=== PATIENT | male | born 1955 | race Caucasian/White ===

== ENCOUNTER → 2021-02-27 | Outpatient (CLI) | payer OTHER ==
[~2021-02-27] VITALS: Ht 172.7 cm; Wt 95.3 kg
[~2021-02-27] MED LIST: ASA81BEC PO; AZATHIOPRINE50 MG PO; B COMPLEX1 EACH PO; DICLOFENAC SODI75 MG PO; FISH OIL 1,0001 EAC9 PO; HUMIRA40 MG/0.1 SUBQ; IBUPROFEN 200200 M1 PO; LOPRESSOR50 MG PO; MELATONIN5 M4 PO; NORCO5 PO; OMEPRAZOLE40 MG PO; OSTERA TABLET1 EAC1 PO; SUPER THERAVIT1 EACH PO; TRAMADOL 50 MG50 MG PO; TYLENOL EXTRA500 MG PO
[2021-02-27 12:34] VITALS: BP 131/63
--- NOTE | 2021-02-27 13:08 | NUR ---
Pain Clinic Assessment: 1. History of Osteoarthritis: Left Upper Extremity Right Upper Extremity Left Upper Extremity Right Lower Extremity History of Rheumatoid Arthritis: Not Applicable 2. Height: 5 ft. 8 in. 172.7 cm. Weight: 210.0 lb. oz. 95.256 kg. Patient's BMI: 31.9 3. Vital Signs: BP: 131/63 Pulse: 60 Resp: 18 Temp: 02 Sat: 98 ECG Mon: 4. Pain Intensity: 8 W/ACTIVITY 5. Fall Risk: Dizziness: N Needs help standing or walking: N Fallen in the last 3 months: N Fall risk comments: 6. Patient on Blood Thinner: None 7. History of Hypertension: Y 8. Opioid Therapy greater than 6 weeks: Y Opiate Contract Signed: 9. Risk Assessment Tool Provided: LOW 10. Functional Assessment Tool: 11. Recreational Drug Use: Never Drug Type: Tobacco Use: Never Smoker Tobacco Type: Amount or Packs/day: How Many Years: Alcohol Use: Yes Frequency: Monthly Quant: 1
--- NOTE | 2021-02-28 08:22 | HPC ---
[facility] [address] [place] [address] PAIN MANAGEMENT CONSULTATION Name: BARAK BENSON Room #: REG ELVIA Chandan.#: [id number] Admission: 02/27/21 Attend Phys: Tejas Pastor DO Discharge: Date of : 53 Report #: [id number] THIS REPORT FOR: cc: DYLAN JORDAN Physician not on staff Tejas Pastor DO ~ DOC #: [id number] cc: Raul Chu MD, MURRAY Viramontes, DATE OF SERVICE: 02/27/2021 CHIEF COMPLAINT: Low back pain, bilateral lower extremity pain and paresthesias. 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 The patient has been dealing with on and off pain for years, undergoing surgery to address L5-S1 level in 2019. He did well from a surgical standpoint, but did not see much in the way of improvement in symptoms. He sought further evaluation to neurosurgery of [facility] seeing Dr. Raul Chu initially and advised that surgical options would not be recommended. He followed up with neurosurgery again, seeing nurse practitioner Dylan Jordan who advised the patient trialed conservative options for treatment including the possibility of a spinal cord stimulator trial implantation. The patient was subsequently referred to our clinic to discuss that as an option. The patient reports his pain is continuous and periodic. He describes the pain more like a burning, shooting, aching, stabbing and intermittent numbness and tingling. He placed the current pain score 3/10 daily, average anywhere from 3-10/10 worst pain has been is 10+/10. The patient states that activity tends to exacerbate symptoms. Rest, ice and pain medications tend to improve pain. He has been referred to our service to discuss the possibility of undergoing spinal cord stimulator trial implantation. PAST MEDICAL HISTORY: 1. Osteoarthritis. 2. Obstructive sleep apnea. 3. Anderson's esophagus. 4. History of nephrolithiasis. 5. Environmental allergies. 6. Hypertension. 7. Ulcerative colitis. 8. GERD. 9. TMJ. 10. [place] [address] PAIN MANAGEMENT CONSULTATION Name: BARAK BENSON Room #: REG CLSierra Hawley.#: [id number] Admission: 02/27/21 Attend Phys: Tejas Pastor DO Discharge: Date of : 53 Report #: [id number] PAST SURGICAL HISTORY: 1. Open rotator cuff repair on the right x5. 2. Lithotripsy with stent placement. 3. Lumbar surgery to address L5-S1 level. SOCIAL HISTORY: The patient denies tobacco, IV or illicit drug use. Admits to occasional alcohol beverage. 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 He is receiving disability income from the State of [place]. He is not in litigation in regards to pain. He is unaccompanied at today's visit. REVIEW OF SYSTEMS: Positive for fatigue and weakness, wearing corrective eyewear, hearing loss with tinnitus, chronic sinus problems with rhinitis, painful bowel movements, constipation, rectal bleeding, abdominal pain, history of nephrolithiasis and sexual difficulty, numbness and tingling sensations, memory loss with confusion, slow to heal after cuts, and bleeding and bruising tendencies. All other review of systems negative per 12-point review of systems other than those listed in history of present illness. Pain impact score 42/70 moderate interference of daily activities secondary to pain. ALLERGIES: IV CONTRAST AGENT. CURRENT MEDICATIONS: Azathioprine 50 mg b.i.d., melatonin 5 mg 2 tabs p.o. at bedtime, ibuprofen 200 mg 4 tabs 3 times a day, vitamin B complex 1 tab per day, acetaminophen 1 tab per day, omega-3 fish oil 1 tab per day, aspirin 81 mg per day, multivitamin 1 tab per day, Humira 40 mg subcutaneous, metoprolol 50 mg b.i.d., tramadol 50 mg q.6 hours p.r.n. for pain, diclofenac sodium 75 mg b.i.d., [place] 5/325 one tab p.o. q.4 hours p.r.n. pain, omeprazole 40 mg per day. IMAGING: MRI of lumbar spine dated 10/24/2020 shows lumbar spondylosis at multiple levels. There is a grade II anterolisthesis of L5 on S1 due to bilateral pars defects. No significant central canal stenosis. There is severe bilateral neural foraminal narrowing. There is moderate bilateral neural foraminal narrowing at the L5-S1 level. PQRS: The patient has known bilateral shoulder osteoarthritis, bilateral knee osteoarthritis and lumbar osteoarthritis. He is not treated for rheumatoid arthritis. He is not a fall risk, has not had a fall in the last 3 months. He is placing current pain at 8/10 with activity. He is not on blood thinners, but history of hypertension. He is on chronic opioids with a low opiate addiction potential. Pain impact is 4270, moderate to severe interference of daily activities secondary to pain. PHYSICAL EXAMINATION: [facility] [address] [place] [address] PAIN MANAGEMENT CONSULTATION Name: BARAK BENSON Room #: REG [facility]#: [id number] Admission: 02/27/21 Attend Phys: Tejas Pastor, Discharge: Date of : 53 Report #: [id number] VITAL SIGNS: Blood pressure 131/63, pulse 66, respiratory rate 18 and unlabored. The patient is 98% on room air. Height 5 feet 8 inches tall, weight 210 pounds, BMI calculated 31.9. GENERAL: Well-developed, well-nourished, well-hydrated 65-year-old male, appears stated age. He is in no acute distress. Awake, alert and oriented x3. Current pain score is rated up to 8/10. HEENT: Normocephalic, atraumatic. Pupils equal, round and responsive to light. He is wearing a mask in compliance with COVID-19 regulations. Speech is fluent. LUNGS: Clear, no wheeze, rhonchi or rales. CARDIOVASCULAR: Regular. No appreciable gallop, no rub. ABDOMEN: Soft, mildly obese, normoactive bowel sounds. EXTREMITIES: Show no clubbing, no cyanosis and no edema. MUSCULOSKELETAL: Lower extremity strength equal and symmetrical 5/5 intact to light touch from L1 through S2 dermatomes. Seated straight leg raising negative. Supine straight leg raising negative. Fabere's test is negative. Modified Gaenslen's positive for axial low back pain. Ankle clonus negative. Babinski is negative. Lumbar provocation is met with increasing axial back pain without radiation of symptoms. ASSESSMENT: 1. Chronic lumbar radiculopathy. 2. Severe neural foraminal stenosis of lumbar spine. 3. Displacement of lumbar intervertebral disk with radiculopathy. 4. Failed lumbar spine surgery. 5. Chronic intractable pain. PLAN: 1. Based on today's physical exam, history he provides, the descriptor he uses in regards to pain as well as distribution of symptoms. He is suffering from chronic lumbar radiculopathy secondary to bilateral severe neural foraminal stenosis. The patient and I discussed his recent MRI with him as well as the recent evaluations with Dr. Chu and his nurse practitioner Dylan Jordan in regards to surgical options. I am in agreement with the neurosurgery team that a spinal cord stimulator may provide the patient with good benefit. He and I have had a discussion today about the spinal cord stimulator, but for completeness sake, we did discuss the treatment options that we have available to treat lumbar radicular symptoms. The following was discussed with the patient today. We discussed physical therapy, stretching exercises and core strengthening as a treatment approach. We discussed medication management utilizing neuropathic pain medications. We discussed lumbar epidural injections under fluoroscopic guidance, spinal cord stimulator therapy and ultimately surgical decompression to address the findings at the L4-L5 and L5-S1 level. The patient and I did discuss each of the treatment options in their entirety, but we did choose that [address] [address] PAIN MANAGEMENT CONSULTATION Name: BARAK BENSON Room #: REG ELVIA Wilkinson#: [id number] Admission: 02/27/21 Attend Phys: Tejas Pastor DO Discharge: Date of : 53 Report #: [id number] a spinal cord stimulator would be the most appropriate treatment at this point as he has failed lumbar epidurals. He has trialed medications, but is unwilling to continue to escalate those doses of therapy and surgical options at this point according to neurosurgery records is not a possibility. We discussed with the patient the following in regards to spinal cord stimulator. 2. The patient will need to follow up with Psychiatry in regards to evaluation. This is required by Medicare for trial implantation. The patient will complete a psychiatric evaluation as quickly as possible. We will review those findings. If there is no concerning psychopathology, we will then begin scheduling the patient for permanent implant. The patient was given the names and numbers of psychiatrist to contact that can provide this testing rapidly. He will keep us apprised of the date of his evaluation, so that we can look for the paperwork. 3. We plan to see the patient back in followup visit once he has completed the psychiatric evaluation. We will review those findings. If again no psychopathology is noted, we will have the patient return as quickly as possible to begin the scheduling process. 4. We made no changes in the medication management of the patient today. He will continue his current medications as previously prescribed. 5. We wish to thank Dylan Jordan, nurse practitioner with neurosurgery of [facility] and Dr. Raul Chu for the referral of this patient to our clinic. We will keep you apprised of his progress towards trial implantation. Once this is completed, we will keep you apprised of his response to that trial and whether or not a permanent implant would be recommended. Obtained a permanent implant, so that we can provide analgesic benefit. We will keep the patient apprised of our process as we move forward. We are hopeful he will have a psych evaluation done quickly. Tejas Pastor DO JEJ/AMI <ELECTRONICALLY SIGNED> By: Tejas Pastor DO 02/28/21 0822 [id number] Tejas Pastor, DO /nt
== END ==
LOC: PAIN 07:36
PROVIDERS: ATTEND Anesthesiology Pain Medicine
DX: M48.061 Spinal stenosis, lumbar region without neurogenic claudication (principal); M51.16 Intervertebral disc disorders with radiculopathy, lumbar region; G89.4 Chronic pain syndrome; Z79.891 Long term (current) use of opiate analgesic; Z79.899 Other long term (current) drug therapy

== ENCOUNTER → 2021-05-23 | Outpatient (CLI) | payer OTHER ==
[~2021-05-23] VITALS: Ht 172.7 cm; Wt 95.7 kg
[2021-05-23 10:27] VITALS: BP 154/79
--- NOTE | 2021-05-23 10:34 | NUR ---
Pain Clinic Assessment: 1. History of Osteoarthritis: Left Upper Extremity Right Upper Extremity Left Upper Extremity Right Lower Extremity History of Rheumatoid Arthritis: Not Applicable 2. Height: 5 ft. 8 in. 172.7 cm. Weight: 211.0 lb. oz. 95.709 kg. Patient's BMI: 32.1 3. Vital Signs: BP: 154/79 Pulse: 69 Resp: 16 Temp: 02 Sat: 97 ECG Mon: 4. Pain Intensity: 0 5. Fall Risk: Dizziness: N Needs help standing or walking: N Fallen in the last 3 months: N Fall risk comments: 6. Patient on Blood Thinner: None 7. History of Hypertension: Y 8. Opioid Therapy greater than 6 weeks: Y Opiate Contract Signed: 9. Risk Assessment Tool Provided: LOW 10. Functional Assessment Tool: 11. Recreational Drug Use: Never Drug Type: Tobacco Use: Never Smoker Tobacco Type: Amount or Packs/day: How Many Years: Alcohol Use: Yes Frequency: Quant:
--- NOTE | 2021-06-06 09:51 | HPC ---
[facility] [place] [address] PAIN MANAGEMENT CONSULTATION Name: BARAK BENSON Room #: REG ELVIA M.Nieves.#: [id number] Admission: 05/23/21 Attend Phys: Tejas Pastor DO Discharge: Date of : 53 Report #: [id number] THIS REPORT FOR: cc: DYLAN JORDAN Physician not on staff Tejas Pastor DO ~ cc: Raul Chu MD, Dylan Jordan DATE OF SERVICE: 05/23/2021 REFERRING PHYSICIAN: Dr. Raul Chu. CHIEF COMPLAINT: Low back pain, bilateral lower extremity pain with paresthesias. 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 He underwent implantation of a trial stimulator last week with good response. He is reporting pain today at about 0/10. Prior to the initiation of this device, his pain was up to a level of 8/10. He describes the pain as constant, burning, shooting and stabbing, exacerbated with activity, improved with rest and relaxation. He is extremely pleased with response to the spinal cord stimulator trial and wishes to move forward with a permanent implant. The patient returns today to explant the device and begin the process of scheduling permanent implantation. ALLERGIES: IV CONTRAST AGENT. CURRENT MEDICATIONS: See chart. SOCIAL HISTORY: The patient denies tobacco, IV or illicit drug use. Admits occasional alcohol beverage. 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 He is accompanied by his , present in room today. IMAGING: No new imaging available. PQRS: The patient has known arthritic changes of the bilateral shoulders, bilateral knees and lumbar spine. He is not treated for rheumatoid arthritis. He is not a fall risk, has not had a fall in last 3 months. He is placing current pain score of 0/10 with activity when the device is present, 8/10 without the device. He is not on blood thinners, but is treated for hypertension. He is on chronic opioids and has a low opiate addiction potential based on assessment tool. Pain impact is 42/70, moderate interference of daily activities secondary to pain. PHYSICAL EXAMINATION: [facility] [address] [place] [address] PAIN MANAGEMENT CONSULTATION Name: BARAK BENSON Room #: REG ELVIA Chandan.#: [id number] Admission: 05/23/21 Attend Phys: Tejas Pastor DO Discharge: Date of : 53 Report #: [id number] VITAL SIGNS: Blood pressure 154/79, pulse 69, respiratory rate 16 and unlabored. The patient is 97% on room air. Height 5 feet 8 inches tall, weight 211 pounds, BMI calculated 32.1. GENERAL: Well-developed, well-nourished, well-hydrated 65-year-old male appearing stated age, pain is rated today 0/10 with the device on, 8/10 with the device off. HEENT: Normocephalic and atraumatic. Pupils are equal, round and responsive. He is wearing a mask in compliance with COVID-19 regulations. EXTREMITIES: Show no clubbing, no cyanosis, no appreciable edema. MUSCULOSKELETAL: Lower extremity strength appears symmetrical 5/5 intact to light touch from L1 through S2 dermatomes. Seated straight leg raising negative. Supine straight leg raising negative. Fabere's test negative. ASSESSMENT: 1. Chronic lumbar radiculopathy. 2. Severe neural foraminal stenosis of lumbar spine. 3. Displacement of lumbar intervertebral disk with radiculopathy. 4. Failed lumbar spine surgery. 5. Chronic intractable pain. PLAN: 1. The patient has returned today in followup visit having noted excellent benefit with the spinal cord stimulator trial done over the past week. He is prepared to move forward with a permanent implant. I recommend that he follow up with his Neurosurgery team as quickly as possible to begin the scheduling of this procedure. I am pleased to see he is done well, reporting over near 100% improvement in overall pain with the device over the last week. He is to contact his Neurosurgery team immediately advised that he had seen an excellent improvement in symptoms with the device and now move forward with scheduling his procedure. 2. No medication changes made at today's visit. The patient will continue current medical therapy as prior prescribed. 3. We wish to thank nurse practitioner, Dylan Jordan as well as Dr. Raul Chu for the opportunity to see the patient in consultation. We are hopeful the patient will be able to gain similar benefit as we have seen with the trial with the permanent implant of [employer] dorsal column stimulator. DESCRIPTION OF PROCEDURE: Explantation of spinal cord stimulating device and two leads. After obtaining verbal consent, the patient was placed in a seated position. The Steri-Strips and Op-Site bandaging was removed from the patient's back. There were two spinal cord stimulator leads in position. No erythema or drainage at the insertion site. The leads were explanted without difficulty. Both leads had their 8 electrodes and tips intact. A sterile bandage was placed over each of the patient's injection sites. There again was no drainage upon [facility] [address] [place] [address] PAIN MANAGEMENT CONSULTATION Name: BARAK BENSON Room #: REG ELVIA Hawley.#: [id number] Admission: 05/23/21 Attend Phys: Tejas Pastor DO Discharge: Date of : 53 Report #: [id number] removal of the leads. There was no pain or paresthesias noted with the explantation of the leads. He tolerated this explantation without difficulty. <ELECTRONICALLY SIGNED> By: Tejas Pastor DO 06/06/21 0951 [id number] Tejas Pastor DO /nt
== END ==
LOC: PAIN 08:38
PROVIDERS: ATTEND Anesthesiology Pain Medicine
DX: M51.16 Intervertebral disc disorders with radiculopathy, lumbar region (principal); M48.061 Spinal stenosis, lumbar region without neurogenic claudication; G89.4 Chronic pain syndrome; Z79.891 Long term (current) use of opiate analgesic; Z79.899 Other long term (current) drug therapy